=== PATIENT | male | born 1930 | race Caucasian/White ===

== ENCOUNTER 2016-12-26 17:47 | Emergency (ER) | payer MEDICARE, BC | END 2016-12-26 18:20 | disposition home or self-care (01) | DX: S61.215A Laceration without foreign body of left ring finger without damage to nail, initial encounter (principal); I10 Essential (primary) hypertension; I25.2 Old myocardial infarction; Z95.0 Presence of cardiac pacemaker; Z79.01 Long term (current) use of anticoagulants; W26.0XXA Contact with knife, initial encounter; Y93.89 Activity, other specified; Y92.009 Unspecified place in unspecified non-institutional (private) residence as the place of occurrence of the external cause ==